=== PATIENT | male | born 1995 | race African-American/Black ===

== ENCOUNTER 2021-02-19 07:30 | Emergency (ER) | payer SELFPAY ==
[~2021-02-19] VITALS: Ht 198.1 cm; Wt 111.0 kg
[2021-02-19 07:34] VITALS: BP 120/82
[2021-02-19] MEDS ORDERED: ALBUTEROL (0.083%) 2.5MG/3ML NEB HHN STA (08:27)
[2021-02-19] MEDS ORDERED: PREDNISONE 20MG TABLET PO STA (08:27)
[2021-02-19] MEDS ORDERED: IPRATROPIUM BROMIDE (0.02%) 0.5MG/2.5ML NEB HHN STA (08:27)
[2021-02-19] MEDS ORDERED: ALBU05 NEB (08:58)
[2021-02-19] MEDS ORDERED: P50 MT (08:58)
[2021-02-19] MEDS ORDERED: ALBU6.7H9 INH (08:58)
== END 2021-02-19 09:29 | disposition home or self-care (01) ==
LOC: ER 07:30
DX: J45.901 Unspecified asthma with (acute) exacerbation (principal)
CPT/HCPCS: 71045; 93005; 94640; 99283; J7512; Z7610

== ENCOUNTER 2024-01-01 19:48 | Emergency (ER) | payer MEDICAID ==
[~2024-01-01] VITALS: Ht 200.7 cm; Wt 118.0 kg
[~2024-01-01 19:48] MED LIST: ALBU05 NEB; ALBU6.7H3 INH; P50 MT
[2024-01-01 19:56] VITALS: O2SAT 96
[2024-01-01 19:58] VITALS: BP 131/80; PULSE 59; TEMP 97.9; O2SAT 100
[2024-01-01] MEDS: CEFTRIAXONE SODIUM 500MG VIAL IM ONE (21:30)
[2024-01-01] MEDS ORDERED: DOXY100C5 MT (21:35)
[2024-01-01 22:00] VITALS: RESP 17
[2024-01-01 23:45] LABS: CLARITY URINE CLEAR (CLEAR); COLOR URINE YELLOW (YELLOW); GLUCOSE URINE NEGATIVE (NEGATIVE); KETONES URINE NEGATIVE (NEGATIVE); LEUKOCYTE ESTERASE URINE 1+ (NEGATIVE); NITRITE URINE NEGATIVE (NEGATIVE); OCCULT BLOOD URINE NEGATIVE (NEGATIVE); PH URINE 6.5 (4.5-8.0); PROTEIN URINE NEGATIVE (NEGATIVE); UROBILINOGEN URINE 0.2 E.U./dL (0.2-1.0)
[2024-01-02 02:52] LABS: SQUAMOUS EPITHELIAL CELL URINE FEW /lpf (RARE/1+)
[2024-01-02 02:53] LABS: WBC URINE 15-25 /hpf (0-2)
[2024-01-02 02:54] LABS: BACTERIA URINE NONE SEEN; RBC URINE 0-2 /hpf (0-2)
[2024-01-05 04:09] LABS: CHLAMYDIA TRACHOMATIS NAA Positive (Negative); NEISSERIA GONORRHOEAE NAA Negative (Negative)
== END 2024-01-02 00:38 | disposition home or self-care (01) ==
LOC: ER 19:48
DX: Z20.2 Contact with and (suspected) exposure to infections with a predominantly sexual mode of transmission (principal); Z11.3 Encounter for screening for infections with a predominantly sexual mode of transmission; Z88.8 Allergy status to other drugs, medicaments and biological substances; J45.909 Unspecified asthma, uncomplicated
CPT/HCPCS: 99283; 87491; 87591; 81003; 87086; 96372; J0696